=== PATIENT | male | born 1970 | race Caucasian/White ===

== ENCOUNTER 2022-02-10 12:22 | Emergency (ER) | payer BC, SELFPAY ==
--- NOTE | ~2022-02-10 | XR_ITS ---
XR chest 2V DATE: 02/10/2022 13:50 INDICATION: Bilateral chest wall pain, lightheadedness. TECHNIQUE: PA and lateral views COMPARISON: None FINDINGS: Normal heart size. No hilar or mediastinal enlargement. Asymmetric approximately 8 mm nodular density overlying the right lower lung. Diffusion diagnosis inc ludes pulmonary nodule versus vascular structure. Recommend comparison with prior chest regress. If n o prior available chest regress, CT thorax is recommended. Mild atelectasis or scarring at the left lung base. Otherwise no pulmonary infiltrate or consolidation, pleural effusion or pulmonary vascular congestion or pneumothorax. IMPRESSION: Possible 8 mm right lower lung nodular density versus vascular structure; recommend comparison with p rior chest radiographs. If no prior examinations are available, CT thorax is recommended. Mild atelectasis or scarring at the left lung base Otherwise no active cardiopulmonary disease Reviewed, dictated and finalized at location B. IMPRESSION: Possible 8 mm right lower lung nodular density versus vascular structure; recom mend comparison with prior chest radiographs. If no prior examinations are avai lable, CT thorax is recommended. Mild atelectasis or scarring at the left lung base Otherwise no active cardiopulmonary disease
--- NOTE | ~2022-02-10 | CT_ITS ---
EXAMINATION: CT brain wo con DATE: 02/10/2022 13:40 INDICATION: Lightheadedness. Near syncope. TECHNIQUE: Computed tomography (CT) of the head was performed without intravenous contrast. The mA wa s adjusted according to patient size. Iterative reconstruction technique was employed. The dose-lengt h product was 605.33 mGy-cm. COMPARISON: None FINDINGS: There is no intracranial hemorrhage, acute infarction, or abnormal intracranial mass lesion . The ventricles are normal in size. The orbits are normal. There is mild mucosal thickening in the p aranasal sinuses. The mastoid air cells are normal. IMPRESSION: 1. Normal brain. Reviewed, dictated and finalized at location A. IMPRESSION: 1. Normal brain.
[2022-02-10 12:57] VITALS: BP 120/85; PULSE 76; RESP 16; TEMP 36.6; O2SAT 98
[2022-02-10 13:15] VITALS: BP 125/90; PULSE 70; RESP 15; O2SAT 98
--- NOTE | 2022-02-10 13:21 | ED.GENADULT ---
HPI - General Adult General Chief complaint: Recheck/Abnormal Lab/Rx Stated complaint: dizziness, light headed, high bp Time Seen by Provider: 02/10/22 13:07 History of Present Illness HPI narrative: 51-year-old male presenting to the emergency department for evaluation of blurred vision with associated lightheaded dizziness and hypertension. Patient states over the last few days he has had blurred vision worse than normal. Patient states today he was grabbing lunch when he started having onset of lightheaded and dizziness. Patient states he did check his blood pressure on a wrist cuff and was found to have a blood pressure that was approximate 170/120. Patient does take medications for high blood pressure. Patient states that approximately 3 years ago he had cardiac work-up at [place]. Patient states he has had a cath about 3 years ago and has since had to nuc Personera studies. Patient has no prior history of PR or CVA. Review of Systems Review of Systems: CONSTITUTIONAL: Denies fever, chills, or sweats. EYES: Denies visual changes, redness, or discharge. ENT: Denies rhinorrhea, congestion, sore throat, or otalgia. CARDIOVASCULAR: Denies chest pain, palpitations, or edema. RESPIRATORY: Denies cough or dyspnea. GASTROINTESTINAL: Denies abdominal pain, nausea, vomiting, or diarrhea. GENITOURINARY: Denies dysuria or hematuria. SKIN: Denies rash or itching. MUSCULOSKELETAL: Denies back pain, joint pain, or myalgia. NEUROLOGIC: Lightheaded dizziness and blurred vision Exam Narrative: APPEARANCE: Well appearing, no pain, no distress, well-nourished. HEAD: normocephalic, atraumatic. EYES: PERRLA/EOMI, conjunctivae clear. NOSE: Normal no drainage EARS:TMS clear with good light reflex. NECK: Supple. No adenopathy, no masses. RESPIRATORY: Airway patent, respirations nonlabored. Clear to auscultation bilaterally, no rales, rhonchi, wheezing. CARDIOVASCULAR: Regular rate and rhythm without murmurs rubs or gallops. ABDOMINAL: Soft, nontender, nondistended, normal bowel sounds MUSCULOSKELETAL: Moves all extremities. Strength/ROM intact, No edema, No calf tenderness. NEURO: Alert. Cranial nerves II through XII intact. Grossly intact SKIN: Warm, dry. Normal Color Course Course Emergency Course: Head CT was negative for any acute intracranial abnormality. Chest x-ray did show pulmonary nodule for which the patient had been previously notified. Patient was once again informed to have close follow-up with his primary care physician for any additional imaging needed as outpatient. Patient states that he feels back to baseline. Patient states that he thinks a significant component of today's event was due to anxiety. Patient was encouraged to have close follow-up with his primary care physician. All questions and concerns were addressed. Patient was well-appearing at time of discharge. Vital Signs Vital signs: Vital Signs Temperature 97.9 F 02/10/22 12:57 Pulse Rate 76 02/10/22 12:57 Respiratory Rate 16 02/10/22 12:57 Blood Pressure 120/85 02/10/22 12:57 Pulse Oximetry 98 02/10/22 12:57 Oxygen Delivery Room Air 02/10/22 12:57 Temperature 97.9 F 02/10/22 12:57 Pulse Rate 65 02/10/22 17:29 Respiratory Rate 18 02/10/22 17:29 Blood Pressure 116/76 02/10/22 17:29 Pulse Oximetry 98 02/10/22 17:29 Oxygen Delivery Room Air 02/10/22 12:57 Medical Decision Making Vital Signs Vital Signs: Vital Signs Temperature 97.9 F 02/10/22 12:57 Pulse Rate 76 02/10/22 12:57 Respiratory Rate 16 02/10/22 12:57 Blood Pressure 120/85 02/10/22 12:57 Pulse Oximetry 98 02/10/22 12:57 Oxygen Delivery Room Air 02/10/22 12:57 Temperature 97.9 F 02/10/22 12:57 Pulse Rate 65 02/10/22 17:29 Respiratory Rate 18 02/10/22 17:29 Blood Pressure 116/76 02/10/22 17:29 Pulse Oximetry 98 02/10/22 17:29 Oxygen Delivery Room Air 02/10/22 12:57 Lab Data Lab results reviewed: Yes I re
[2022-02-10 13:24] VITALS: PULSE 68; RESP 12; O2SAT 95
[2022-02-10 13:43] LABS: Basophils Absolute Auto 0.1 K/mm3 (0.0-0.1); Basophils Percent Auto 0.9 % (0.2-1.2); Eosinophils Absolute Auto 0.1 K/mm3 (0-0.3); Eosinophils Percent Auto 1.8 % (0-4.4); Hemoglobin 15.5 g/dL (14.0-18.0); Immature Granulocyte Absolute 0.04 K/mm3 (0.00-0.031); Immature Granulocyte Percent A 0.5 % (0-0.5); Lymphocytes Absolute Auto 1.35 K/mm3 (0.9-3.2); Lymphocytes Percent Auto 17.3 % (18.3-44.2); Mean Corpuscular HGB Conc 33.7 g/dl (32-36); Mean Corpuscular Hemoglobin 30.8 pg (26-34); Mean Corpuscular Volume 91.5 fl (80-100); Mean Platelet Volume 9.1 fl (7.4-10.4); Monocytes Absolute Auto 0.6 K/mm3 (0.1-0.6); Monocytes Percent Auto 7.2 % (2.6-8.5); Neutrophils Absolute Auto 5.6 K/mm3 (1.3-6.7); Neutrophils Percent Auto 72.3 % (45.5-73.1); Platelet Count Result 290 k/mm3 (150-375); Red Blood Count 5.03 M/mm3 (4.6-6.20); Red Cell Distribution Width 14.3 % (11.5-14.5); White Blood Count 7.8 K/mm3 (4.5-10.0)
[2022-02-10 13:53] LABS: Prothrombin Time 13.2 Seconds (11.1-14.7)
[2022-02-10 13:54] LABS: Partial Thromboplastin Time 29.2 SECONDS (22.3-36.8)
[2022-02-10 13:57] LABS: Alanine Aminotransferase 36 U/L (6-50); Albumin Level 4.4 g/dL (3.5-5.1); Alkaline Phosphatase 73 U/L (38-126); Anion Gap 10 mmol/L (8-16); Aspartate Amino Transferase 28 U/L (17-59); Bilirubin,Total 1.1 mg/dL (0.2-1.3); Blood Urea Nitrogen 11 mg/dL (9-20); Calcium 9.5 mg/dL (8.4-10.2); Carbon Dioxide 28 mmol/L (22-30); Chloride 101 mmol/L (98-107); Estimated CRCL calculation 107 ml/min; Estimated Glomerular Filt Rate > 60; Glucose 101 mg/dL (65-110); Potassium 3.9 mmol/L (3.4-5.0); Sodium 139 mmol/L (137-145)
[2022-02-10 14:05] LABS: Appearance Urine Clear (Clear); Bilirubin Urine Negative (Negative); Blood Urine Negative (Negative); Color Urine Yellow (Yellow); Glucose Urine UA Negative (Negative); Ketones Urine Negative (Negative); Leukocyte Esterase Ur Negative LEU/UL (Negative); Nitrate Urine Negative (Negative); Protein Urine Negative (Negative); Urobilinogen Urine 0.2 mg/dL (<2.0)
[2022-02-10 14:09] LABS: Troponin I < 0.012 ng/mL (0.000-0.034)
[2022-02-10 14:21] LABS: Add Urine Microscopic? NO
[2022-02-10 16:36] VITALS: PULSE 74; RESP 14; O2SAT 96
[2022-02-10 16:45] VITALS: BP 114/71; PULSE 66; RESP 13; O2SAT 97
[2022-02-10 17:05] LABS: Troponin I < 0.012 ng/mL (0.000-0.034)
[2022-02-10 17:29] VITALS: BP 116/76; PULSE 65; RESP 18; O2SAT 98
== END 2022-02-10 17:30 | disposition home or self-care (01) ==
PROVIDERS: Emergency Provider Emergency Medicine
DX: R42 Dizziness and giddiness (principal); I10 Essential (primary) hypertension; R91.8 Other nonspecific abnormal finding of lung field
CPT/HCPCS: 36415; 70450; 71046; 80053; 81003; 84484; 85025; 85610; 85730; 99284